=== PATIENT | male | born 1945 | race Caucasian/White ===

== ENCOUNTER 2022-08-28 15:16 | Emergency (ER) | payer MEDICARE, BC, SELFPAY ==
[2022-08-28 15:18] VITALS: BP 133/68; PULSE 67; RESP 16; TEMP 37.2; O2SAT 97
--- NOTE | 2022-08-28 15:35 | ED.GENADUL_ITS ---
Discharge Plan Discharge Details Chief Complaint: RashLesion Primary Care Provider: Unknown,Unknown ED Provider: Robbie Chávez Home Meds and New Rx's Prescriptions: No Action cyclosporine [Restasis] 0.05 % dropperette 1 drp ophthalmic (eye) BID Patient Comments: Instill 1 drop into both eyes twice a day Centrum Adult 50 Plus 80 mcg Tablet,Chewable 1 tab PO DAILY Medical Decision Making 77-year-old gentleman with slow to heal wound on the leg. Mild localized signs of cellulitis. No systemic illness. Some granulation tissue that requires some wet to dry dressing for a week patient will be prescribed antibiotic. HPI General Date/Time Provider Initiated Documentation: 08/28/22 15:35 . HPI Narrative: 77-year-old gentleman brought to the emergency room for evaluation because of nonhealing wound on the right tib-fib area. He sustained an injury approximately week and half ago but has a persistent been draining. Family member noticed that the redness and swelling. No fevers no chills. No difficulty walking. Family has been applying some Neosporin to the wound. Related Data Home Medications Medication Instructions Recorded Confirmed cyclosporine 0.05 % eye drops in a 1 drp ophthalmic (eye) BID 08/28/22 08/28/22 dropperette (Restasis) multivitamin with minerals-folic 1 tab PO DAILY 08/28/22 08/28/22 acid 80 mcg chewable tablet (Centrum Adult 50 Plus) Allergies Allergy/AdvReac Type Severity Reaction Status Date / Time No Known Allergies Allergy Unverified 08/28/22 15:28 General Stated Complaint: RashLesion GENESIS: 4 Review of Systems Narrative: 10 point review of system is negative unless otherwise specified in HPI PFSH Social History Smoking/Tobacco Use Status: Never Smoking risk assessment performed?: Yes Alcohol Intake: never Drug use: Never Substance use type: does not use Housing: house Do you feel safe at home: Yes Do you feel safe in your relationship?: Yes Additional Social history: lives with both sisters. Exam Narrative Exam Narrative: General: A,A Ox3, Calm, no apparent distress, well developed, pleasant and cooperative Head Size/Shape: normocephalic, atraumatic Eyes Pupils: PERRLA Extraocular Mobility: intact and symmetrical Conjunctiva: non-injected, anicteric, no discharge Ears, Nose, Throat Nares: patent bilaterally Oral Cavity: moist Neck: Supple Respiratory Respiratory Effort: no dyspnea Cardiovascular Normal cap refill Musculoskeletal System Joints, Bones, and Muscles: no deformities Extremities: warm and well-perfused, no cyanosis, capillary refill <2 seconds Skin Skin Inspection: Right tib-fib area. Patient has a 12 x 1/2 cm open wound with granulation tissue. Mild erythema. Neurological Motor: normal tone, normal strength, moving all extremities equally Psychiatric: good insight, good judgement, normal mood and affect Course Vital Signs Vital signs: Vital Signs Temperature 37.2 C 08/28/22 15:18 Pulse 67 08/28/22 15:18 Respiratory Rate 16 08/28/22 15:18 Blood Pressure 133/68 08/28/22 15:18 Pulse Oximetry 97 08/28/22 15:18 Temperature 37.2 C 08/28/22 15:18 Temperature Source Skin 08/28/22 15:18 Pulse 67 08/28/22 15:18 Respiratory Rate 16 08/28/22 15:18 Respiratory Effort Normal, Non-Labored 08/28/22 15:29 Blood Pressure 133/68 08/28/22 15:18 Blood Pressure Position Sitting 08/28/22 15:18 Pulse Oximetry 97 08/28/22 15:18 Oxygen Delivery Method Room Air 08/28/22 15:18 Oxygen Flow Rate 0 08/28/22 15:18
== END 2022-08-28 16:17 | disposition home or self-care (01) ==
PROVIDERS: Emergency Provider Emergency Medicine
DX: L03.115 Cellulitis of right lower limb (principal)
CPT/HCPCS: 99283; 99284